=== PATIENT | male | born 1975 | race Caucasian/White ===

== ENCOUNTER 2018-03-16 01:46 | Emergency (ER) | payer SELFPAY ==
[2018-03-16] MEDS ORDERED: Amoxicillin/Potassium Clav 875 MG TAB ONE (02:05)
== END 2018-03-16 02:10 | disposition home or self-care (01) ==
LOC: MADERS 01:46
DX: K02.9 Dental caries, unspecified (principal); F17.210 Nicotine dependence, cigarettes, uncomplicated
CPT/HCPCS: 99283